=== PATIENT | male | born 1940 | race Caucasian/White ===

== ENCOUNTER → 2016-08-28 | Outpatient (CLI) | payer BC, MEDICARE ==
[~2016-08-28] MED LIST: AMIO200T2 PO; CRESTOR10 MG PO; DABI150C PO; DOXY100C2 PO; SULF1TAB24 PO; TAMS0.4C2 PO
== END | disposition home or self-care (01) ==
LOC: PCVCCLINIC 12:33
PROVIDERS: ATTEND Internal Medicine Cardiovascular Disease
DX: I48.91 Unspecified atrial fibrillation (principal); I48.92 Unspecified atrial flutter; E78.5 Hyperlipidemia, unspecified; M48.00 Spinal stenosis, site unspecified; E78.00 Pure hypercholesterolemia, unspecified; I71.4 Abdominal aortic aneurysm, without rupture; I63.9 Cerebral infarction, unspecified; R00.0 Tachycardia, unspecified; Z86.73 Personal history of transient ischemic attack (TIA), and cerebral infarction without residual deficits
CPT/HCPCS: G0463

== ENCOUNTER → 2016-08-29 | Outpatient (CLI) | payer BC, MEDICARE ==
[~2016-08-29] MED LIST changes: +IV NORMAL SALINE 1000ML BAG 0 ML ONE
== END | disposition home or self-care (01) ==
LOC: PCVCINTER 08:45
PROVIDERS: ATTEND Internal Medicine
DX: I48.92 Unspecified atrial flutter (principal); I48.91 Unspecified atrial fibrillation; E78.5 Hyperlipidemia, unspecified; M48.00 Spinal stenosis, site unspecified; E78.00 Pure hypercholesterolemia, unspecified; I71.4 Abdominal aortic aneurysm, without rupture; I63.9 Cerebral infarction, unspecified; R00.0 Tachycardia, unspecified; Z86.73 Personal history of transient ischemic attack (TIA), and cerebral infarction without residual deficits
CPT/HCPCS: 93005; J7030

== ENCOUNTER → 2017-04-17 | Outpatient (CLI) | payer BC, MEDICARE ==
[~2017-04-17] MED LIST changes: -IV NORMAL SALINE 1000ML BAG 0 ML ONE
== END | disposition home or self-care (01) ==
LOC: PCVCCLINIC 13:10
PROVIDERS: ATTEND Internal Medicine Cardiovascular Disease
DX: I48.0 Paroxysmal atrial fibrillation (principal); I10 Essential (primary) hypertension; E78.00 Pure hypercholesterolemia, unspecified; I48.92 Unspecified atrial flutter; Z86.73 Personal history of transient ischemic attack (TIA), and cerebral infarction without residual deficits; Z96.651 Presence of right artificial knee joint; Z87.891 Personal history of nicotine dependence; Z79.899 Other long term (current) drug therapy
CPT/HCPCS: 80061; G0463

== ENCOUNTER → 2017-04-19 | Outpatient (CLI) | payer MEDICARE ==
[~2017-04-19] MED LIST changes: +BENZOCAINE ONE 20% MUCOSAL SPRAY.; +IV NORMAL SALINE 1000ML BAG 1,000 ML ONE; +MIDAZOLAM HCL/PF 2 MG/2 ML VIAL. ONE; +fentaNYL PF VIAL 100 MCG/2 ML VIAL ONE
--- NOTE | 2017-04-19 10:16 | PCVCIMAG ---
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 Type of Sedation : Conscious Sedation Sedation was administered by Shanda Ortiz RN. Versed (3mg) Fentanyl (75mcg) Transesophageal probe was inserted and advanced into esophagus without difficulty by Jesus Ponce MD. The DUKE was performed without complications. Throughout the procedure, the blood pressure, pulse oximetry, cardiac rhythm, and rate were monitored. The patient tolerated the procedure without adverse effects. Recovery from conscious sedation was uneventful and vital signs were stable. Left Ventricle The left ventricle is normal size. There is normal LV segmental wall motion. There is normal left ventricular wall thickness. Left ventricular systolic function is normal. The left ventricular ejection fraction is within the normal range. LVEF is 55-60%. Right Ventricle The right ventricle is normal size. The right ventricular systolic function is normal. Atria No masses or clots in the left atrium or appendage No shunting by contrast bubble injection The right atrium size is normal. Aortic Valve The aortic valve is trileaflet, mildly calcified. Mild aortic regurgitation. There is no aortic valvular stenosis. Mitral Valve The mitral valve is normal in structure. Mild mitral regurgitation. No evidence of mitral valve stenosis. Tricuspid Valve The tricuspid valve is normal in structure. There is no tricuspid valve regurgitation noted. Pulmonic Valve The pulmonary valve is normal in structure. There is no pulmonic valvular regurgitation. Great Vessels The aortic root is normal in size. Minimal atherosclerosis in aorta. Pericardium There is no pericardial effusion. <Conclusion> Left ventricular systolic function is normal. There is normal LV segmental wall motion. LVEF 55-60%. No masses or clots in the left atrium or appendage. No shunting by contrast bubble injection. The aortic valve is trileaflet, mildly calcified. No aortic valvular stenosis. Mild insufficiency The mitral valve is normal in structure. Mild mitral regurgitation. There is no pericardial effusion.
== END | disposition home or self-care (01) ==
LOC: PCVCIMAG 08:57
PROVIDERS: ATTEND Internal Medicine Cardiovascular Disease
DX: I08.0 Rheumatic disorders of both mitral and aortic valves (principal); I48.91 Unspecified atrial fibrillation; E78.00 Pure hypercholesterolemia, unspecified; I63.9 Cerebral infarction, unspecified; I71.4 Abdominal aortic aneurysm, without rupture; Z87.891 Personal history of nicotine dependence
CPT/HCPCS: 92960; 93312; J2250; J3010; J7030

== ENCOUNTER → 2018-03-20 | Outpatient (CLI) | payer MEDICARE ==
[~2018-03-20] MED LIST changes: -AMIO200T2 PO; +AMIO200T4 PO; -IV NORMAL SALINE 1000ML BAG 1,000 ML ONE; +IV NORMAL SALINE 500ML BAG 500 ML ONE
--- NOTE | 2018-03-20 12:11 | PCVCIMAG ---
APPROVED REPORT Study performed: 03/20/2018 09:24:05 EXAM: Transesophageal Echocardiogram with Cardioversion Patient Location: [facility] Room #: 1 Status: routine BSA: 2.08 HR: 113 bpmBP: 159/104 mmHg Rhythm: Atrial Flutter Other Information Study Quality: Good Indications Atrial Fibrillation Echo Enhancing Agent Indication: Rule out Shunt Agent(s) / Amount(s) Used: Agitated Saline 10 cc Comments: Negative contrast study for shunt flow. Procedure After obtaining informed consent, patient underwent transesophageal echo in the [employer]. Type of Sedation : Conscious Sedation Sedation was administered by Camila Palomino RN. Sedation start time: 09:43 Case end Time: 09:54 Sedation was achieved intravenously with: Versed (4mg) Fentanyl (100mcg) Transesophageal probe was inserted and advanced into esophagus without difficulty by Jesus Ponce MD. Echo enhancement indication: R/O Septal defect. Echo enhancement agent administered: Agitated Saline The DUKE was performed without complications. Synchronized Cardioversion attempted: Successful Synchronized Cardioversion acheived with 20, 100 Joules after 2 attempt(s). Rhythm following Synchronized Cardioversion: Normal Sinus Rhythm Throughout the procedure, the blood pressure, pulse oximetry, cardiac rhythm, and rate were monitored. The patient tolerated the procedure without adverse effects. Recovery from conscious sedation was uneventful and vital signs were stable. Cardioversion attempted with 20 joules- unsuccessful: second attempt was 100 joules-successful Left Ventricle The left ventricle is normal size. There is normal LV segmental wall motion. There is normal left ventricular wall thickness. The left ventricular systolic function is normal. The left ventricular ejection fraction is within the normal range. LVEF is 60%. Right Ventricle The right ventricle is normal size. The right ventricular systolic function is normal. Atria The left atrium size is dilated No thrombus in the left atrium or appendage. Interatrial septum is intact without evidence of ASD or PFO. The right atrium size is normal. Aortic Valve Aortic valve is trileaflet, mildly sclerotic Mild, central aortic regurgitation. There is no aortic valvular stenosis. Mitral Valve The mitral valve is normal in structure. Mild-moderate mitral regurgitation. No evidence of mitral valve stenosis. Tricuspid Valve The tricuspid valve is normal in structure. Trace tricuspid regurgitation. Pulmonic Valve The pulmonary valve is normal in structure. There is no pulmonic valvular regurgitation. Great Vessels The aortic root is normal in size. The ascending aorta is normal in size. Minimal atherosclerosis Aortic arch is normal in caliber. IVC is normal in size and collapses >50% with inspiration. Pericardium There is no pericardial effusion. <Conclusion> The left ventricular systolic function is normal. The left atrium size is dilated No thrombus in the left atrium or appendage. No shunting by contrast bubble injection Aortic valve is trileaflet, mildly sclerotic. Mild, central aortic regurgitation. The mitral valve is normal in structure. Mild-moderate mitral regurgitation. There is no pericardial effusion. Successful cardioversion of atrial flutter to sinus rhythm following two synchronous Joule attempts.
== END | disposition home or self-care (01) ==
LOC: PCVCINTER 13:19
PROVIDERS: ATTEND Internal Medicine
DX: I08.3 Combined rheumatic disorders of mitral, aortic and tricuspid valves (principal); I48.0 Paroxysmal atrial fibrillation; I48.92 Unspecified atrial flutter; I10 Essential (primary) hypertension; I71.4 Abdominal aortic aneurysm, without rupture; Z88.6 Allergy status to analgesic agent; Z88.8 Allergy status to other drugs, medicaments and biological substances; Z79.899 Other long term (current) drug therapy; Z87.891 Personal history of nicotine dependence; E78.00 Pure hypercholesterolemia, unspecified; Z86.73 Personal history of transient ischemic attack (TIA), and cerebral infarction without residual deficits; Z96.651 Presence of right artificial knee joint
CPT/HCPCS: 92960; 93005; 93312; 93320; 93325; 99152; J2250; J3010; J7040

== ENCOUNTER → 2018-04-25 | Outpatient (CLI) | payer MEDICARE ==
[~2018-04-25] MED LIST changes: -BENZOCAINE ONE 20% MUCOSAL SPRAY.; -IV NORMAL SALINE 500ML BAG 500 ML ONE; -MIDAZOLAM HCL/PF 2 MG/2 ML VIAL. ONE; -fentaNYL PF VIAL 100 MCG/2 ML VIAL ONE
--- NOTE | 2018-04-25 12:39 | PCVCIMAG ---
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 Room #: 2Status: routine BSA: 2.08 HR: 71 bpmBP: 116/54 mmHg Rhythm: NSR Other Information Study Quality: Good Risk Factors: Cardiac Risk Factors: HTN, Hyperlipidemia Indications Atrial Fibrillation Dyspnea S/P ABLATION 2D Dimensions IVSd: 9.19 (7-11mm)LVOT Diam: 19.97 (18-24mm) LVDd: 45.83 mm PWd: 7.67 (7-11mm) LVDs: 24.08 (25-40mm) Left Atrium: 45.11 (27-40mm) Aortic Root: 31.30 mm LV Single Plane 4CH: 58.55 % LV Single Plane 2CH: 58.78 % Biplane EF: 58.2 % Volumes Left Atrial Volume (Systole) Single Plane 4CH: 91.49 mLSingle Plane 2CH: 81.99 mL Biplane LA Volume: 88.00 mLLA ESV Index: 43.00 mL/m2 Aortic Valve AI Vmax: 3.97 m/s AI Sherman: 2.41 m/s2 AI PHT: 477.55 ms Mitral Valve E/A Ratio: 1.5 MV Decel. Time: 171.49 ms MV E Max Socrates.: 0.98 m/s MV A Socrates.: 0.66 m/s IVRT: 69.20 ms Pulmonary Valve PV Peak Socrates.: 0.89 m/sPV Peak Gr.: 3.15 mmHg Tricuspid Valve TR Peak Socrates.: 2.63 m/s TR Peak Gr.: 27.75 mmHg TV Vmax: 0.93 m/sPA Pressure: 38.00 mmHg Left Ventricle The left ventricle is normal size. There is normal left ventricular wall thickness. The left ventricular systolic function is normal. The left ventricular ejection fraction is within the normal range. LVEF is 55-60%. Right Ventricle Right ventricle is dilated. The right ventricle is mildly to moderately thickened and echogenic. The right ventricular systolic function is normal. Atria Left atrium is moderately dilated. Right atrium is severely dilated. Aortic Valve Aortic valve is trileaflet. Mild to moderate aortic regurgitation. There is no aortic valvular stenosis. Mitral Valve The mitral valve is normal in structure. There is no mitral valve regurgitation noted. No evidence of mitral valve stenosis. Tricuspid Valve Mild tricuspid regurgitation with a PA pressure of 38 mmHg Mild pulmonary hypertension.. Pulmonic Valve The pulmonary valve is normal in structure. There is no pulmonic valvular regurgitation. Great Vessels The aortic root is normal in size. Aortic arch is not well visualized. IVC is normal in size and collapses <50% with inspiration. Pericardium Pericardium appears moderately thickened and very echogenic.Right atrium claudine slightly. Mild circumferential pericardial effusion.small <Conclusion> The left ventricle is normal size. LVEF is 55-60%. Right ventricle is dilated. Left atrium is moderately dilated. Right atrium is severely dilated. Aortic valve is trileaflet. Mild to moderate aortic regurgitation. There is no mitral valve regurgitation noted. Mild tricuspid regurgitation with a PA pressure of 38 mmHg Mild pulmonary hypertension.. The aortic root is normal in size. Pericardium appears moderately thickened and very echogenic.Right atrium claudine slightly. Mild circumferential pericardial effusion.small
== END | disposition home or self-care (01) ==
LOC: PCVCIMAG 11:09
PROVIDERS: ATTEND Internal Medicine Cardiovascular Disease
DX: I48.0 Paroxysmal atrial fibrillation (principal); I30.9 Acute pericarditis, unspecified; I08.2 Rheumatic disorders of both aortic and tricuspid valves
CPT/HCPCS: 93005; 93308; G0463

== ENCOUNTER → 2018-05-27 | Outpatient (CLI) | payer MEDICARE ==
--- NOTE | 2018-05-28 12:58 | PCVCIMAG ---
APPROVED REPORT Study performed: 05/27/2018 16:36:19 EXAM: Comprehensive 2D, Doppler, and color-flow Echocardiogram Patient Location: Echo lab Status: routine BSA: 2.08 HR: 95 bpmBP: 140/70 mmHg Rhythm: Atrial Fibrillation Other Information Study Quality: Adequate Indications Hx Pericarditis and Effusion Left Ventricle The left ventricle is normal size. The left ventricular systolic function is normal. The left ventricular ejection fraction is within the normal range. LVEF is 55-60%. Right Ventricle The right ventricle is normal size. The right ventricular systolic function is normal. Atria The left atrium size is normal. The right atrium size is normal. Aortic Valve Mild aortic regurgitation. Tricuspid Valve Mild tricuspid regurgitation. Pericardium Trace to none pericardial effusion. <Conclusion> The left ventricle is normal size. LVEF is 55-60%. The right ventricle is normal size. The left atrium size is normal. Mild aortic regurgitation. Trace to none pericardial effusion.
== END | disposition home or self-care (01) ==
LOC: PCVCCLINIC 16:07
PROVIDERS: ATTEND Internal Medicine Cardiovascular Disease
DX: I48.92 Unspecified atrial flutter (principal); I24.1 Dressler's syndrome; I31.9 Disease of pericardium, unspecified; R06.02 Shortness of breath; R07.1 Chest pain on breathing; I31.3 Pericardial effusion (noninflammatory); I48.91 Unspecified atrial fibrillation; G45.9 Transient cerebral ischemic attack, unspecified; I06.1 Rheumatic aortic insufficiency; Z87.891 Personal history of nicotine dependence
CPT/HCPCS: 93005; 93308; G0463

== ENCOUNTER → 2019-03-11 | Outpatient (CLI) | payer MEDICARE | END | disposition home or self-care (01) | LOC: PCVCCLINIC 11:30 | PROVIDERS: ATTEND Internal Medicine Cardiovascular Disease | DX: I48.91 Unspecified atrial fibrillation (principal); E78.00 Pure hypercholesterolemia, unspecified; I63.9 Cerebral infarction, unspecified; I71.4 Abdominal aortic aneurysm, without rupture; I48.92 Unspecified atrial flutter; D68.59 Other primary thrombophilia; Z87.891 Personal history of nicotine dependence | CPT/HCPCS: 36415; 80061; 93005; G0463 ==

== ENCOUNTER → 2019-03-20 | Outpatient (CLI) | payer MEDICARE ==
--- NOTE | 2019-03-20 10:23 | PCVCIMAG ---
APPROVED REPORT Study performed: 03/20/2019 09:19:44 Exam: Stress Echocardiogram Indication: Hyperlipidemia, Hypertension Ht: 6 ft 1 in Medical History Medical History: Stroke/TIA,a fib ablation x 2, AAArepair Cardiac Risk Factors: HTN, Hyperlipidemia, FHX of CAD Pretest Chest Pain Characteristics: No chest pain Exercise History: Physically active Procedure The patient underwent an Exercise Stress Test using the Justin Protocol. Blood pressure, heart rate, and EKG were monitored. An Echocardiogram was performed by dental lab technician in four stages in quad fashion. At peak stress, four selected images were obtained and placed side by side with resting images for comparison. Stress Test Details Stress Test: Exercise stress testing was performed using a Justin protocol. HR Resting HR: 65 bpmMax Heart Rate (APMHR): 140 bpm Max HR Achieved: 99 bpmTarget HR (85% APMHR): 119 bpm % of APMHR: 70 Recovery HR: 74 bpm HR response to stress: Normal HR response to stress BP Resting BP: 146/84 mmHg Max BP: 176/86 mmHg Recovery BP: 156/82 mmHg BP response to stress: Normal blood pressure response to stress. ECG Resting ECG: Sinus Rhythm, nonspecific ST-T abnormalities Stress ECG: Sinus Rhythm, NSSTT changes ST Change: Non-ischemic Maximum ST Deviation: -0.55 mm Arrhythmia: rare PAC Recovery ECG: Sinus Rhythm, nonspecific ST-T abnormalities Recovery ST Change: Non-ischemic Recovery Arrhythmia: None Clinical Reason for Termination: leg fatigue Stress Symptoms: leg fatigue Exercise duration: 3 min 47 sec Highest Stage Achieved: Stage 2: 2.5 mph at 12% grade. Exercise capacity: 6.4 METs Overall Exercise Capacity for Age: Poor Scale: Sedentary Angina Score: None No complications. Stress ECG Conclusion Non-diagnostic exercise stress due to failure to attain target HR. Mckeon Treadmill Score is 5.8 which is Low risk. Pre-Stress Echo The resting Echocardiogram showed normal left ventricular contractility with an estimated Ejection Fraction of about 55-60%. Normal wall motion in all segments on baseline images. Post-Stress Echo The stress Echocardiogram showed normal left ventricular contractility with an estimated Ejection Fraction of about 60-65%. Normal augmentation of wall motion in all segments on post stress images. Clinical No clinical or ECG evidence for ischemia in a submaximal stress test. Conclusion Clinical Response: Non-ischemic Exercise Capacity: Below Average Stress ECG Response: Indeterminant Stress Echo Images: Non-ischemic Non-diagnostic study due to inability of the patient to achieve 85% of maximal HR. Other Information Study Quality: Fair <Conclusion> Non-diagnostic study due to inability of the patient to achieve 85% of maximal HR.
--- NOTE | 2019-03-20 12:26 | PCVCIMAG ---
EXAM: AORTOILIAC DUPLEX INDICATION: Abdominal aortic aneurysm with prior stent graft repair. FINDINGS: AORTA: Suprarenal aorta measures maximum diameter of 2.7 cm. Prior stent graft repair of abdominal aortic aneurysm appears intact without obvious endoleak. Residual aneurysm sac measures maximum diameter of 3.4 cm. No significant aortic stenosis. RIGHT COMMON ILIAC ARTERY: Maximum diameter is 1.3 cm. No significant stenosis. RIGHT EXTERNAL ILIAC ARTERY: No significant stenosis. LEFT COMMON ILIAC ARTERY: Maximum diameter is 1.5 cm. No significant stenosis. LEFT EXTERNAL ILIAC ARTERY: No significant stenosis. IMPRESSION: Intact stent graft repair of abdominal aortic aneurysm by ultrasound criteria. LOC:[id number]
== END | disposition home or self-care (01) ==
LOC: PCVCIMAG 08:40
PROVIDERS: ATTEND Internal Medicine Cardiovascular Disease
DX: E78.5 Hyperlipidemia, unspecified (principal); I10 Essential (primary) hypertension; I71.4 Abdominal aortic aneurysm, without rupture; R00.0 Tachycardia, unspecified; I48.91 Unspecified atrial fibrillation; I63.9 Cerebral infarction, unspecified; I48.92 Unspecified atrial flutter; D68.59 Other primary thrombophilia; E78.00 Pure hypercholesterolemia, unspecified; Z87.891 Personal history of nicotine dependence; Z88.8 Allergy status to other drugs, medicaments and biological substances
CPT/HCPCS: 93325; 93351; 93978